=== PATIENT | female | born 1940 | race Caucasian/White ===

== ENCOUNTER → 2017-05-20 | Outpatient (REF) ==
[~2017-05-20] MED LIST: CARDI-OMEGA1000 MG PO; CENTRUM SILVER1 TA1 PO; LOW DOSE ASPIRI81 MG PO; LUTEIN20 M1 PO; VITAMIN C BUFF500 MG PO
[2017-05-20 07:16] LABS: COLLECTION METHOD CATHETER
[2017-05-20 07:27] LABS: MUCOUS Present /lpf; PH 5 (5-8); SQUAMOUS EPITHELIAL None Seen /hpf; URINE APPEARANCE Clear; URINE BACTERIA None Seen /hpf; URINE BILIRUBIN Negative (NEGATIVE); URINE BLOOD Negative (NEGATIVE); URINE COLOR Yellow; URINE GLUCOSE Negative (NEGATIVE); URINE KETONE Negative (NEGATIVE); URINE LEUKOCYTE ESTERASE Negative (NEGATIVE); URINE PROTEIN(semi-quant) Negative (NEGATIVE); URINE UROBILINOGEN Negative (NEGATIVE); URINE WBC 0-2 /hpf
== END ==
LOC: ZMSC 07:14
PROVIDERS: Orthopaedic Surgery
DX: Z01.89 Encounter for other specified special examinations (principal)

== ENCOUNTER 2018-04-21 16:49 | Inpatient (IN) | payer MEDICARE, OTHER ==
[~2018-04-21] VITALS: Ht 172.7 cm; Wt 103.1 kg
[2018-05-03] MEDS ORDERED: CRANBERRY 100 M1 SGL PO (04:17)
[2018-05-03] MEDS ORDERED: MAG-OX 400400 MG/TAB PO (04:19)
[2018-05-03] MEDS ORDERED: ESTRACE0.1 MG/GM VG (04:19)
[2018-05-03] MEDS ORDERED: COUMADIN 5MG5 MG/TAB PO (04:20)
[2018-05-03] MEDS ORDERED: PROBIOTIC FORMU1 CAP PO (04:20)
[2018-05-03 09:04] VITALS: BP 139/72; PULSE 59; TEMP 97.9
[2018-05-03 09:07] LABS: BASO # 0.1 (0.0-0.2); BASO % 1.1 % (0.0-2.0); EOS # 0.2 (0.0-0.7); EOS % 3.8 % (0-4.0); GRAN # 3.1 (1.4-6.5); GRAN % 49.4 % (42.2-75.2); HEMATOCRIT 37.7 % (37.0-47.0); LYMPH # 2.2 (1.2-3.4); LYMPH % 35.2 % (20.0-51.0); MEAN CELL VOLUME 95 fl (80.0-100.0); MEAN CORPUSCULAR HEMOGLOBIN 33 pg (27.0-31.0); MEAN CORPUSCULAR HGB CONC 35 g/dl (33.0-37.0); MEAN PLATELET VOLUME 9.2 fl (7.4-10.4); MONO # 0.6 (0.1-0.6); PLATELET COUNT 193 K/mm3 (130-400); RED BLOOD COUNT 3.97 M/mm3 (4.10-5.30); REDCELL DISTRIBUTION WIDTH-CV 13.4 % (11.5-14.5)
[2018-05-03 09:10] LABS: INR 3.1 (0.8-3.0); PROTHROMBIN TIME 35.1 SECONDS (9.7-12.8)
[2018-05-03 09:17] LABS: ALBUMIN 3.8 gm/dL (3.5-5.0); BILIRUBIN,TOTAL 0.5 mg/dL (0.0-1.0); CALCIUM 10.1 mg/dL (8.4-10.2); CREATININE, serum 0.8 mg/dL (0.52-1.25); MAGNESIUM 2.1 mg/dL (1.6-2.3); POTASSIUM 4.6 mmol/L (3.4-5.0); TOTAL PROTEIN 6.8 gm/dL (6.4-8.2)
[2018-05-03] MEDS ORDERED: TOPROL XL 25MG25 MG PO (10:45)
[2018-05-03 10:47] VITALS: BP 145/75; PULSE 57; TEMP 97.4
[2018-05-03 14:53] VITALS: BP 133/60; PULSE 59; TEMP 98
[2018-05-03 19:47] VITALS: BP 129/66; PULSE 58; TEMP 97.9
[2018-05-04 00:23] VITALS: BP 121/52; PULSE 56; TEMP 97.5
[2018-05-04 04:45] VITALS: PULSE 52
[2018-05-04 06:07] LABS: BASO % 0.5 % (0.0-2.0); EOS # 0.3 (0.0-0.7); EOS % 4.5 % (0-4.0); GRAN # 3.8 (1.4-6.5); GRAN % 51.5 % (42.2-75.2); HEMATOCRIT 37.1 % (37.0-47.0); HEMOGLOBIN 12.5 g/dl (12.5-16.0); LYMPH # 2.5 (1.2-3.4); LYMPH % 33.5 % (20.0-51.0); MEAN CELL VOLUME 94 fl (80.0-100.0); MEAN CORPUSCULAR HEMOGLOBIN 32 pg (27.0-31.0); MEAN CORPUSCULAR HGB CONC 34 g/dl (33.0-37.0); MEAN PLATELET VOLUME 9.3 fl (7.4-10.4); MONO # 0.7 (0.1-0.6); MONO % 9.7 % (1.7-9.3); PLATELET COUNT 186 K/mm3 (130-400); RED BLOOD COUNT 3.93 M/mm3 (4.10-5.30); REDCELL DISTRIBUTION WIDTH-CV 13.2 % (11.5-14.5)
[2018-05-04 06:10] LABS: INR 2.8 (0.8-3.0); PROTHROMBIN TIME 31.5 SECONDS (9.7-12.8)
[2018-05-04 06:12] LABS: CALCIUM 9.6 mg/dL (8.4-10.2); CREATININE, serum 0.74 mg/dL (0.52-1.25); POTASSIUM 4.2 mmol/L (3.4-5.0)
[2018-05-04 08:17] VITALS: BP 140/62; PULSE 60; TEMP 97.8
[2018-05-04 11:45] VITALS: BP 120/57; PULSE 56; TEMP 97.6
[2018-05-04 15:45] VITALS: BP 122/68; PULSE 50; TEMP 98
[2018-05-04 19:58] VITALS: BP 105/50; PULSE 51; TEMP 97.8
[2018-05-05 00:11] VITALS: BP 108/54; PULSE 59; TEMP 97.1
[2018-05-05 03:41] VITALS: BP 101/53; PULSE 63; TEMP 97.7
[2018-05-05 07:21] LABS: BASO # 0.1 (0.0-0.2); BASO % 0.8 % (0.0-2.0); EOS # 0.3 (0.0-0.7); GRAN # 3.7 (1.4-6.5); GRAN % 51.6 % (42.2-75.2); HEMATOCRIT 39.2 % (37.0-47.0); HEMOGLOBIN 13.2 g/dl (12.5-16.0); LYMPH # 2.4 (1.2-3.4); LYMPH % 32.7 % (20.0-51.0); MEAN CELL VOLUME 96 fl (80.0-100.0); MEAN CORPUSCULAR HEMOGLOBIN 32 pg (27.0-31.0); MEAN CORPUSCULAR HGB CONC 34 g/dl (33.0-37.0); MEAN PLATELET VOLUME 9.6 fl (7.4-10.4); MONO # 0.8 (0.1-0.6); MONO % 10.6 % (1.7-9.3); PLATELET COUNT 203 K/mm3 (130-400); RED BLOOD COUNT 4.07 M/mm3 (4.10-5.30); REDCELL DISTRIBUTION WIDTH-CV 13.5 % (11.5-14.5)
[2018-05-05 07:27] LABS: INR 2.3 (0.8-3.0); PROTHROMBIN TIME 26.3 SECONDS (9.7-12.8)
[2018-05-05 07:47] LABS: CALCIUM 9.8 mg/dL (8.4-10.2); CREATININE, serum 0.8 mg/dL (0.52-1.25); MAGNESIUM 2.1 mg/dL (1.6-2.3); POTASSIUM 4.7 mmol/L (3.4-5.0)
[2018-05-05 07:59] VITALS: BP 129/73; PULSE 54; TEMP 97.5
[2018-05-05] MEDS ORDERED: BETAPACE 80MG80 MG PO (09:42)
== END 2018-05-05 11:43 | disposition home or self-care (01) | DRG 310 ==
LOC: MEDICAL 05-03 08:14
PROVIDERS: Internal Medicine Cardiovascular Disease
DX: I48.1 Persistent atrial fibrillation (principal); I10 Essential (primary) hypertension; I48.92 Unspecified atrial flutter; Z87.891 Personal history of nicotine dependence